=== PATIENT | female | born 1960 | race American Indian/Alaskan Native ===

== ENCOUNTER 2023-09-12 05:45 | Day surgery (SDC) | payer OTHER ==
[2023-09-07 15:18] VITALS: BP 132/82
[~2023-09-12] VITALS: Ht 160 cm; Wt 82.0 kg
[~2023-09-12 05:45] MED LIST: GEMTESA75 MG PO; NAPROXEN500 MG PO
[2023-09-12 06:00] VITALS: BP 143/83
--- NOTE | 2023-09-12 06:15 | NUR ---
PT UPSET THIS AM WAS RUNNING LATE. WARM BLANKET ON.
--- NOTE | 2023-09-12 07:22 | NUR ---
ROUNDS. PT EXPRESSED LITTLE INTEREST IN CONVERSATION. SHORT VISIT IN ACCORDANCE WITH PT WISHES. PROVIDED SILENT PRAYER.
--- NOTE | 2023-09-12 07:45 | NUR ---
HAS BEEN UPDATED WITH DR PATRICK ARZOLA. STATES OK. DENIES ANY NEEDS.
[2023-09-12 09:17] VITALS: BP 144/78
--- NOTE | 2023-09-12 09:19 | NUR ---
NO ONE WITH PT. MEDICAL TRANSPORT COMING FOR HER.
--- NOTE | 2023-09-12 09:33 | NUR ---
09/12/23 0933 Lisa Mishra 0846- PT ARRIVES TO PACU, NON REACTIVE TO STIMULUS. NPA TO RIGHT NARE, PT HAS SOME BLOODY DRAINAGE IN BACK OF THROAT. REQUIRES CHIN LIFT TO MAINTAIN AIRWAY, THROAT SUCTIONED. JOLLY ROBIN AT BEDSIDE PULLED NPA FROM NARE AND PLACED IN PT MOUTH. O2 AT 10L PER MASK, LR INFUSING TO RH IV. ABD SOFT, NON DISTENDED. SEMI MARTINEZ POSITION, ALL MONITORS IN PLACE. 0850- O2 TURNED DOWN TO 6L PER MASK, NPA REMOVED FROM PT MOUTH. PT REMAINS NON REACTIVE AT THIS TIME. MAINTAINING OWN AIRWAY. 0854- PT IS DROWSY, DENIES PAIN AND NAUSEA. O2 SATS REMAIN 100% ON 6L PER MASK, PT PULLING AT MASK, REMOVED AND PLACED ON ROOM AIR. WILL CONTINUE TO MONITOR. 0900- PT SAT UP IN BED, PROVIDED WATER. TOLERATING WELL. REPORTS FEELING VERY TIRED, NO PAIN OR NAUSEA. 0915- PT VITAL SIGNS STABLE, PT ANSWERS QUESTIONS APPROPRIATELY. PT REQUIRED LMA DURING PROCEDURE AND RIDE HOME IS GOBI. PT TO GO BACK TO DAY SURGERY TO WAKE UP MORE. LR CONTINUES TO INFUSE TO RH IV. NO SIGNS OF DISTRESS. REPORT TO TERESITA WHITE AT BEDSIDE, CARE OF PT TURNED OVER AT THIS TIME.
[2023-09-12 09:57] VITALS: BP 150/77
--- NOTE | 2023-09-12 09:59 | NUR ---
HAS EATEN 2 JELLOS DRANK COFFEE AND WATER. TO BSC X2 VOIDS TOTAL 200MLS SLIGHLY PINK URINE.
== END 2023-09-12 10:15 | disposition home or self-care (01) ==
LOC: OPS 05:45 → DS 05:45 → OPS 07:30
PROVIDERS: ATTEND Urology
PROC: 0T7D8DZ Dilation of Urethra with Intraluminal Device, Via Natural or Artificial Opening Endoscopic (ICD-10-PCS; 2023-09-12)
PROC: 3E0K8GC Introduction of Other Therapeutic Substance into Genitourinary Tract, Via Natural or Artificial Opening Endoscopic (ICD-10-PCS; principal; 2023-09-12 07:30)
DX: N32.81 Overactive bladder (principal); N31.9 Neuromuscular dysfunction of bladder, unspecified; I10 Essential (primary) hypertension; B18.2 Chronic viral hepatitis C; E61.9 Deficiency of nutrient element, unspecified; G89.29 Other chronic pain; M54.9 Dorsalgia, unspecified
CPT/HCPCS: J0585; J0690; J1100; J1885; J2250; J2405; J2704; J2765; J3010; J7121